=== PATIENT | female | born 1945 | race Caucasian/White ===

== ENCOUNTER 2022-07-16 09:58 | Outpatient (CLI) | payer OTHER | END 2022-07-16 09:59 | disposition home or self-care (01) | LOC: BICCT 09:58 | PROVIDERS: ATTEND Otolaryngology Plastic Surgery within the Head & Neck | DX: H70.11 Chronic mastoiditis, right ear (principal) | CPT/HCPCS: 70480 ==

== ENCOUNTER 2023-09-17 12:56 | Outpatient (CLI) | payer OTHER | END 2023-09-17 12:57 | disposition home or self-care (01) | LOC: RAD 12:56 | PROVIDERS: ATTEND Family Medicine | DX: R09.89 Other specified symptoms and signs involving the circulatory and respiratory systems (principal) | CPT/HCPCS: 71046 ==